=== PATIENT | male | born 1955 | race Caucasian/White ===

== ENCOUNTER → 2018-11-03 08:22 | Outpatient (CLI) | payer OTHER, MEDICAID, SELFPAY ==
--- NOTE | 2018-11-03 | DI.US.S_ITS ---
PROCEDURE: US ABD AORTA ANEURYSM SCREEN INDICATIONS: SCREENING TECHNIQUE: Real time scanning was performed of the aorta and iliac arteries, with image documentation. COMPARISON: None. FINDINGS: Aorta: Proximal aortic diameter measures 1.9 cm. Mid-aorta measures 1.9 cm. Distal aortic diameter is 1.9 cm. Iliac arteries: Right common iliac artery measures 1.2 cm. Left common iliac artery measures 1.2 cm. IMPRESSION: No evidence of abdominal aortic aneurysm. Dictated by: Jose Luis Jin M.D. on 11/03/2018 at 8:30 Approved by: Jose Luis Jin M.D. on 11/03/2018 at 8:31
== END ==
PROVIDERS: PCP Internal Medicine; Visit Provider Internal Medicine
DX: Z13.6 Encounter for screening for cardiovascular disorders (principal)
CPT/HCPCS: 76706

== ENCOUNTER → 2019-01-05 09:11 | Outpatient (CLI) | payer OTHER, MEDICAID, SELFPAY ==
--- NOTE | 2019-01-05 | DI.RAD.S_ITS ---
PROCEDURE: XR CHEST 2V INDICATIONS: Pneumonia TECHNIQUE: 2 views of the chest were acquired. COMPARISON: [facility], , CHEST 2 VIEW, 11/18/2017, 13:13. FINDINGS: Surgical changes and devices: None. Lungs and pleura: Lungs are clear. No pleural effusions or pneumothorax. Mediastinum: Mediastinal contours are normal except at the thoracic inlet where the transverse dimension of the trachea appears abnormally narrowed, to a greater degree than previously present on plain film imaging from November of last year.. Heart size is normal. Bones and chest wall: No suspicious bony abnormalities. Soft tissues appear unremarkable. IMPRESSION: The transverse dimension of the upper thoracic trachea at the thoracic inlet is appreciably narrowed, presumably by either a soft tissue mass or vascular mass. 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 Prior maximal thoracic diameter at the low neck level has been 2.4 cm and the current dimension in the area of maximal narrowing is estimated at 1.1 cm. Dictated by: Romie Lerma M.D. on 01/05/2019 at 10:14 Approved by: Romie Lerma M.D. on 01/05/2019 at 10:18
== END ==
PROVIDERS: PCP Internal Medicine; Visit Provider Internal Medicine
DX: J18.9 Pneumonia, unspecified organism (principal)
CPT/HCPCS: 71046

== ENCOUNTER → 2019-01-11 09:56 | Outpatient (CLI) | payer OTHER, MEDICAID, SELFPAY ==
--- NOTE | 2019-01-11 | DI.CT.S_ITS ---
PROCEDURE: CT CHEST W CON INDICATIONS: Patient a chest film on 01/05/19 which suggested narrowing of the upper thoracic trachea, raising the question of a vascular ring. TECHNIQUE: After the administration of intravenous contrast, 5 mm thick sections acquired from the pulmonary apices to the posterior costophrenic angles. 7 mm thick coronal and sagittal MIP reformats were acquired. For radiation dose reduction, the following was used: automated exposure control, adjustment of mA and/or kV according to patient size. COMPARISON: [facility], CR, XR CHEST 2V, 01/05/2019, 9:12. FINDINGS: Image quality: Excellent. Lungs and pleura: No acute air space opacities. No pleural effusions or pneumothorax. Central and peripheral airways are patent and normal in caliber. Mediastinum: Heart size is normal. No pericardial effusion. No mediastinal or hilar adenopathy by size criteria. Thoracic aorta and central pulmonary arteries are normal in size. Esophagus is normal in caliber. No hiatal hernia. There is no vascular ring present. There is no mass narrowing the superior thoracic portion of the trachea. This trachea does appear somewhat long in the AP dimension and relatively narrow in the transverse dimension suggesting possible mild tracheomalacia. Mild coronary artery calcifications. Bones and chest wall: No suspicious bony lesions. No vertebral body compression fractures. No axillary or supraclavicular adenopathy by size criteria. Thyroid gland is unremarkable. Abdomen: Mild fatty change in the liver. Calcified splenic granulomata. Upper abdominal bowel loops are normal in caliber. IMPRESSION: 1. Mild tracheomalacia. No vascular ring. 2. No evidence acute pulmonary process. 3. Mild hepatic steatosis. 4. Chronic granulomatous disease. Dictated by: Domenico Alexander M.D. on 01/11/2019 at 10:21 Approved by: Domenico Alexander M.D. on 01/11/2019 at 10:36
== END ==
PROVIDERS: PCP Internal Medicine; Visit Provider Internal Medicine
DX: R22.2 Localized swelling, mass and lump, trunk (principal); J39.8 Other specified diseases of upper respiratory tract; K76.0 Fatty (change of) liver, not elsewhere classified; I25.10 Atherosclerotic heart disease of native coronary artery without angina pectoris
CPT/HCPCS: 71260

== ENCOUNTER → 2019-04-12 14:47 | Outpatient (CLI) | payer OTHER, MEDICAID, SELFPAY ==
[2019-04-12 18:09] LABS: Ferritin 93.6 ng/mL (17.9-464)
== END ==
PROVIDERS: PCP Internal Medicine; Visit Provider Internal Medicine
DX: G25.81 Restless legs syndrome (principal)
CPT/HCPCS: 36415; 82728

== ENCOUNTER → 2019-10-20 10:04 | Outpatient (CLI) | payer OTHER, MEDICAID, SELFPAY ==
[2019-10-20 11:28] LABS: Blood Urea Nitrogen 24 mg/dL (9-20); Calcium 9.4 mg/dL (8.4-10.2); Carbon Dioxide 28 mmol/L (22-32); Chloride 102 mmol/L (98-107); Cholesterol 211 mg/dL (140-199); Estimated Glomerular Filt Rate > 60.0 mL/min (>60); Glucose 83 mg/dL (80-110); HDL Cholesterol 41 mg/dL (40-60); HEMOLYSIS < 15 (0-50); LDL Cholesterol Calculated 146 mg/dL (<100); Potassium 4.3 mmol/L (3.4-5.1); Sodium 139 mmol/L (137-145); Triglycerides 122 mg/dL (35-150)
[2019-10-20 11:57] LABS: Prostate Specific Antigen Scrn 2.73 ng/mL (0.1-4.0)
== END ==
PROVIDERS: PCP Internal Medicine; Visit Provider Internal Medicine
DX: Z12.5 Encounter for screening for malignant neoplasm of prostate (principal); E78.00 Pure hypercholesterolemia, unspecified
CPT/HCPCS: 36415; 80048; 80061; G0103

== ENCOUNTER → 2019-11-02 09:50 | Outpatient (CLI) | payer OTHER, MEDICAID, SELFPAY ==
--- NOTE | 2019-11-02 | DI.RAD.S_ITS ---
PROCEDURE: FL BARIUM SWALLOW INDICATIONS: Gastro-esophageal reflux disease with esophagitis COMPARISON: None. FINDINGS: Function: There is decreased esophageal peristalsis. Delayed esophageal clearance No elicited gastroesophageal reflux. Morphology: Air-contrast images demonstrate grossly normal mucosal morphology. Single contrast views show no esophageal strictures, extrinsic mass effects, or diverticula. Limited images of the stomach demonstrate normal appearance. IMPRESSION: Esophageal dysmotility and delayed esophageal clearance Dictated by: Drew Flaherty M.D. on 11/02/2019 at 17:15 Approved by: Drew Flaherty M.D. on 11/02/2019 at 17:16
== END ==
PROVIDERS: PCP Internal Medicine; Visit Provider Internal Medicine
DX: K21.0 Gastro-esophageal reflux disease with esophagitis (principal); K22.4 Dyskinesia of esophagus
CPT/HCPCS: 74220

== ENCOUNTER → 2020-03-07 12:28 | Outpatient (CLI) | payer OTHER, MEDICAID, SELFPAY ==
[2020-03-09 16:07] LABS: SARS CoV19 IgG Negative (Negative)
== END ==
PROVIDERS: PCP Internal Medicine; Referring Provider Internal Medicine; Visit Provider Internal Medicine
DX: Z03.818 Encounter for observation for suspected exposure to other biological agents ruled out (principal)
CPT/HCPCS: 36415; 86769

== ENCOUNTER → 2020-10-21 20:05 | Outpatient (ROUT) | payer OTHER, MEDICAID, SELFPAY ==
[2020-10-21 20:17] LABS: Add Manual Diff / Slide Review NO; Basophils Absolute Auto 0 /uL (0-100); Basophils Percent Auto 0.3 % (0-2); Eosinophils Absolute Auto 100 /uL (0-450); Eosinophils Percent Auto 1.6 % (2-4); Hematocrit 45.3 % (41-53); Hemoglobin 15.2 g/dL (13.5-17.5); Lymphocytes Absolute Auto 1500 /uL (1100-4500); Lymphocytes Percent Auto 21.7 % (25-40); Mean Corpuscular HGB Conc 33.6 % (30-36); Mean Corpuscular Hemoglobin 31.2 PG (26-34); Mean Corpuscular Volume 92.9 fL (80-100); Monocytes Absolute Auto 500 /uL (0-900); Monocytes Percent Auto 7.2 % (3-14); Neutrophils Absolute Auto 4700 /uL (1500-7000); Neutrophils Percent Auto 69.2 % (50-75); Platelet Count 205 X10^3/uL (150-400); Red Blood Cell Count 4.88 X10^6/uL (4.5-5.9); Red Cell Distribution Width 13.5 % (11.6-14.8); White Blood Cell Count 6.8 X10^3/uL (4.5-11.0)
[2020-10-21 20:22] LABS: Alanine Aminotransferase 25 IU/L (<50); Albumin 4.6 g/dL (3.5-5.0); Albumin Globulin Ratio 1.5 (1.0-2.8); Alkaline Phosphatase 42 U/L (38-126); Aspartate Aminotransferase 30 IU/L (17-59); BUN Creatinine Ratio 39.7 (6-22); Bilirubin Total 0.5 mg/dL (0.2-1.3); Blood Urea Nitrogen 25 mg/dL (9-20); Calcium 9.5 mg/dL (8.4-10.2); Carbon Dioxide 31 mmol/L (22-32); Chloride 100 mmol/L (98-107); Cholesterol 222 mg/dL (140-199); Estimated Glomerular Filt Rate > 60.0 mL/min (>60); Glucose 82 mg/dL (80-110); HDL Cholesterol 50 mg/dL (40-60); HEMOLYSIS 18 (0-50); LDL Cholesterol Calculated 136 mg/dL (<100); Potassium 4.8 mmol/L (3.4-5.1); Sodium 137 mmol/L (137-145); Total Protein 7.6 g/dL (6.3-8.2); Triglycerides 180 mg/dL (35-150)
[2020-10-21 20:51] LABS: Prostate Specific Antigen Scrn 2.76 ng/mL (0.1-4.0)
== END ==
PROVIDERS: PCP Internal Medicine; Visit Provider Internal Medicine
DX: I10 Essential (primary) hypertension (principal); E78.2 Mixed hyperlipidemia; E66.9 Obesity, unspecified; K21.00 Gastro-esophageal reflux disease with esophagitis, without bleeding; Z12.5 Encounter for screening for malignant neoplasm of prostate
CPT/HCPCS: 80053; 80061; 85025; G0103

== ENCOUNTER → 2021-09-05 10:10 | Outpatient (CLI) | payer MEDICARE, SELFPAY ==
[2021-09-05 12:47] LABS: Alanine Aminotransferase 27 IU/L (<50); Albumin 4.7 g/dL (3.5-5.0); Albumin Globulin Ratio 1.6 (1.0-2.8); Alkaline Phosphatase 43 U/L (38-126); Aspartate Aminotransferase 28 IU/L (17-59); BUN Creatinine Ratio 21.7 (6-22); Bilirubin Total 0.5 mg/dL (0.2-1.3); Blood Urea Nitrogen 18 mg/dL (9-20); Calcium 9.8 mg/dL (8.4-10.2); Carbon Dioxide 31 mmol/L (22-32); Chloride 101 mmol/L (98-107); Cholesterol 226 mg/dL (140-199); Estimated Glomerular Filt Rate > 60.0 mL/min (>60); Glucose 92 mg/dL (80-110); HDL Cholesterol 46 mg/dL (40-60); HEMOLYSIS < 15 (0-50); LDL Cholesterol Calculated 152 mg/dL (<100); Potassium 4.7 mmol/L (3.4-5.1); Sodium 141 mmol/L (137-145); Total Protein 7.7 g/dL (6.3-8.2); Triglycerides 139 mg/dL (35-150)
[2021-09-05 13:13] LABS: Prostate Specific Antigen 2.96 ng/mL (0.10-4.00)
[2021-09-05 13:19] LABS: HIV 1 & 2 Ab/Ag 4th Gen Combo NEGATIVE (NEGATIVE); Hep C Virus Ab w/Reflex Quant NEGATIVE s/c (NEGATIVE)
== END ==
PROVIDERS: PCP Internal Medicine; Referring Provider Internal Medicine; Visit Provider Internal Medicine
DX: Z12.5 Encounter for screening for malignant neoplasm of prostate (principal); E78.2 Mixed hyperlipidemia; Z11.4 Encounter for screening for human immunodeficiency virus [HIV]; Z11.59 Encounter for screening for other viral diseases
CPT/HCPCS: 36415; 80053; 80061; 84153; 86803; 87389

== ENCOUNTER → 2021-11-03 13:54 | Outpatient (CLI) | payer MEDICARE, MEDICAID, SELFPAY ==
--- NOTE | 2021-11-20 08:04 | PM.CARDMON.1 ---
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 Patient event not associated with any dysrhythmia Clinical correlation suggested
== END ==
PROVIDERS: PCP Internal Medicine; Referring Provider Internal Medicine; Visit Provider Internal Medicine
DX: R55 Syncope and collapse (principal)
CPT/HCPCS: 93242; 93244

== ENCOUNTER 2025-10-06 10:31 | Emergency (ER) | payer MEDICARE, SELFPAY ==
[2025-10-06 10:45] VITALS: BP 158/81; PULSE 62; RESP 18; TEMP 36.8; O2SAT 95; BMI 31.3
[2025-10-06] MEDS: SILVER NITRATE STICK 2 EACH TOP (11:10)
[2025-10-06 11:28] LABS: Add Manual Diff / Slide Review NO; Hematocrit 43.4 % (41-53); Hemoglobin 15.0 g/dL (13.5-17.5); Lymphocytes Absolute Auto 1400 /uL (1100-4500); Mean Corpuscular HGB Conc 34.6 % (30-36); Mean Corpuscular Hemoglobin 31.3 PG (26-34); Mean Corpuscular Volume 90.4 fL (80-100); Platelet Count 226 X10^3/uL (150-400)
[2025-10-06 11:36] LABS: INR 0.9 (0.9-1.3); Prothrombin Time 10.7 SECONDS (9.4-12.5)
[2025-10-06 11:38] LABS: PTT Partial Thromboplastin Tim 33 SECONDS (25.1-36.5)
--- NOTE | 2025-10-06 12:53 | ED.EPISTAXIS ---
HPI - Epistaxis General Chief complaint: Nasal Problem Stated complaint: Nose bleed for 48hrs won't stop Time Seen by Provider: 10/06/25 12:53 Source: patient Mode of arrival: Ambulatory History of Present Illness HPI Narrative: This is a 69-year-old gentleman who takes baby aspirin and presents with an episode of epistaxis in his left nostril which began yesterday. Patient denied any blood thinners. Patient denies any recent trauma. Patient states ?I like to blow my nose a lot?. No active bleeding while in the emergency department Related Data Home Medications ?Medication ?Instructions ?Recorded ?Confirmed [TUMERIC CURCUMIN] 500 mg PO QDAY ##0 05/31/17 [VITAMIN B-100] 1 tab PO QDAY ##0 05/31/17 ascorbic acid (vitamin C) 500 mg 1,000 mg PO QDAY ##0 05/31/17 tablet aspirin 81 mg tablet,delayed 81 mg PO QDAY ##0 05/31/17 release cholecalciferol (vitamin D3) 50 1 tab PO QDAY ##0 05/31/17 mcg (2,000 unit) tablet (Vitamin D3) ezetimibe 10 mg tablet (Zetia) 10 mg PO QDAY ##0 05/31/17 christen (Zingiber officinalis) 550 1 tab PO ##0 05/31/17 mg capsule lisinopril 10 mg tablet 10 mg PO QDAY ##0 05/31/17 multivitamin (Multiple Vitamins 1 tab PO QDAY ##0 05/31/17 tablet) omega [id number]-[id number]-fish oil 1,000 mg 1,000 mg PO QDAY ##0 05/31/17 (120 mg-180 mg) capsule (Fish Oil) sildenafil (pulm.hypertension) 20 60 mg PO QDAYP PRN ##0 05/31/17 mg tablet (Revatio) Allergies Allergy/AdvReac Type Severity Reaction Status Date / Time No Known Allergies Allergy Uncoded 10/06/25 10:45 Review of Systems Review of Systems Narrative: GENERAL: Denies chills, fatigue, malaise, fever, sweats. HEENT: See HPI RESPIRATORY: Denies dyspnea, cough, wheezing, hemoptysis, sputum. CARDIOVASCULAR: Denies chest pain, palpitations, orthopnea, edema, GASTROINTESTINAL: Denies nausea, vomiting, abdominal pain, diarrhea, constipation, melena. : Denies dysuria, frequency, incontinence, hematuria, urinary retention. MUSCULOSKELETAL: denies weakness, joint pain, or bony pain SKIN: Denies rash, skin lesions, or other NEUROLOGIC: Denies weakness, headache, numbness, change in speech, confusion, seizures, incoordination. PSYCHIATRIC: No concerning psychosocial issues. 12 point review of systems is negative except for those stated above Patient History Social History Smoking Status: Former smoker Smoking Status: Former smoker Exam Initial Vital Signs Initial Vital Signs: Vital Signs Temperature 98.2 F 10/06/25 10:45 Pulse Rate 62 10/06/25 10:45 Respiratory Rate 18 10/06/25 10:45 Blood Pressure 158/81 H 10/06/25 10:45 Pulse Oximetry 95 10/06/25 10:45 Oxygen Delivery Method Room Air 10/06/25 10:45 GENERAL: [] year old patient appears stated age. Well-developed patient, in mild distress. HEAD: Atraumatic. Normocephalic. EYES: Pupils equal round and reactive. Extraocular motions intact. No scleral icterus. No injection or drainage. ENT: Nose with some dry blood in proximal left nares, purulent drainage. Throat without erythema, tonsillar hypertrophy or exudate. Airway patent. NECK: Trachea midline. Non tender CARDIOVASCULAR: Regular rate and rhythm without murmurs, gallops, or rubs. RESPIRATORY: Clear to auscultation. Breath sounds equal bilaterally. No wheezes, rales, or rhonchi. GASTROINTESTINAL: Abdomen soft, non-tender, nondistended. EXTREMITIES: No edema or joint tenderness. BACK: Nontender without deformity or crepitance. No flank tenderness. NEURO: AOx3. SKIN: No rash or erythema of visible areas Course Orders Ordered: ED Orders 10/06/25 11:19 CBC Auto Diff [Complete Blood Count AUTO DIFF] Stat PTT Partial Thromboplastin David Stat Prothrombin Time INR Stat Discontinued Medications Silver Nitrate/Potassium Nitrate (Silver Nitrate Stick) 2 each TOP NOW ONE Stop: 10/06/25 11:05 Last Admin: 10/06/25 11:10 Dose: 1 each Documented By: CTS Vital Signs Vital signs: Vital Signs - 8 hr 10/06/25 10:45 Temperature 98.2 F Pulse Rate 62 Respiratory Rate 18 Blood Pressure 158/81 H Pulse Oximetry 95 Oxygen Delivery Method Room Air [facility] - Epistaxis Lab Data 10/06/25 11:19 Labs: Lab Results 10/06/25 Range/Units 11:19 WBC 6.1 (4.5-11.0) X10^3/uL RBC 4.80 (4.5-5.9) X10^6/uL Hgb 15.0 (13.5-17.5) g/dL Hct 43.4 (41-53) % MCV 90.4 (80-100) fL MCH 31.3 (26-34) PG MCHC 34.6 (30-36) % RDW 14.0 (11.6-14.8) % Plt Count 226 (150-400) X10^3/uL Neut % (Auto) 67.0 (50-75) % Lymph % (Auto) 22.9 L (25-40) % [place] % (Auto) 7.2 (3-14) % Eos % (Auto) 1.8 L (2-4) % Baso % (Auto) 1.1 (0-2) % Neut # (Auto) 4100 (5603-0730) /uL Lymph # (Auto) 1400 (9151-5776) /uL [place] # (Auto) 400 (0-900) /uL Eos # (Auto) 100 (0-450) /uL Baso # (Auto) 100 (0-100) /uL PT 10.7 (9.4-12.5) SECONDS INR 0.9 (0.9-1.3) APTT 33 (25.1-36.5) SECONDS [facility] Narrative Medical decision making narrative: I examined the patient's nose there were some minimal places of blood accumulation those areas were cauterized with silver nitrate good hemostasis was obtained. I did check the patient's CBC and coags 0 with normal limits at this point the patient can be discharged home he will be told to stop the baby aspirin for a couple of days and follow up with his doctor next week. Differential diagnosis is anterior epistaxis versus posterior epistaxis Discharge Plan Departure Patient Disposition: Home Clinical Impression: Epistaxis Instructions: DI for Nosebleed Prescriptions: No Action aspirin 81 MG tablet,delayed release (DR/EC) 81 mg PO QDAY Qty: 0 lisinopril 10 MG tablet 10 mg PO QDAY Qty: 0 ezetimibe [Zetia] 10 MG tablet 10 mg PO QDAY Qty: 0 omega 8-bdp-wcn-fish oil [Fish Oil] 1,000 MG capsule 1,000 mg PO QDAY Qty: 0 multivitamin [Multiple Vitamins] 1 EACH tablet 1 tab PO QDAY Qty: 0 ascorbic acid (vitamin C) 500 MG tablet 1,000 mg PO QDAY Qty: 0 christen (Zingiber officinalis) 550 MG capsule 1 tab PO Qty: 0 cholecalciferol (vitamin D3) [Vitamin D3] 2,000 UNIT tablet 1 tab PO QDAY Qty: 0 [TUMERIC CURCUMIN] 500 mg PO QDAY Qty: 0 [VITAMIN B-100] 1 tab PO QDAY Qty: 0 sildenafil (pulm.hypertension) [Revatio] 20 MG tablet 60 mg PO QDAYP PRNQty: 0 Referrals: Hanna Lin ARNP [Primary Care Provider, Nursing] - 3-5 days Stand Alone Forms: Patient Portal/API
[2025-10-06 13:12] VITALS: BP 143/84; PULSE 55; RESP 20; O2SAT 96
== END 2025-10-06 13:13 | disposition home or self-care (01) ==
PROVIDERS: Emergency Provider Emergency Medicine; PCP Nurse Practitioner Family
DX: R04.0 Epistaxis (principal); Z79.82 Long term (current) use of aspirin
CPT/HCPCS: 30901; 85025; 85610; 85730; 99282; 99283